=== PATIENT | female | born 1960 | race Caucasian/White ===

== ENCOUNTER 2016-10-24 16:08 | Emergency (ER) | payer OTHER ==
[~2016-10-24] VITALS: Ht 175.3 cm; Wt 76.3 kg
[~2016-10-24 16:08] MED LIST: ABILIFY20 MG PO; ADDERALL20 MG PO; DIAZEPAM5 MG PO; FENOFIBRATE160 M1 PO; GABAPENTIN300 MG PO; OXYCODONE-APAP1 EACH PO; SINGULAIR10 MG PO; SOMA350 MG PO; ZOCOR40 MG PO
[2016-10-24] MEDS ORDERED: INDOCIN25 MG PO (18:19)
[2016-10-24] MEDS ORDERED: NORCO 7.5/321 TABLET PO (18:19)
[2016-10-24 18:33] VITALS: BP 122/68
== END 2016-10-24 18:57 | disposition home or self-care (01) ==
LOC: EME 16:08 → RME 16:08
DX: M75.21 Bicipital tendinitis, right shoulder (principal); S46.811A Strain of other muscles, fascia and tendons at shoulder and upper arm level, right arm, initial encounter; X50.0XXA Overexertion from strenuous movement or load, initial encounter; Y92.63 Factory as the place of occurrence of the external cause; Y99.0 Civilian activity done for income or pay; M32.9 Systemic lupus erythematosus, unspecified; F17.200 Nicotine dependence, unspecified, uncomplicated
CPT/HCPCS: 73030; 99281; 99284

== ENCOUNTER 2017-05-21 10:07 | Emergency (ER) | payer OTHER ==
[~2017-05-21] VITALS: Ht 175.3 cm; Wt 74.3 kg
[~2017-05-21 10:07] MED LIST changes: +INDOCIN25 MG PO; +NORCO 7.5/321 TABLET PO
[2017-05-21] MEDS ORDERED: LEVAQUIN500 MG PO (11:46)
[2017-05-21 12:03] VITALS: BP 123/94
== END 2017-05-21 12:09 | disposition home or self-care (01) ==
LOC: EME 10:07
DX: J18.9 Pneumonia, unspecified organism (principal); M32.9 Systemic lupus erythematosus, unspecified; Z87.891 Personal history of nicotine dependence
CPT/HCPCS: 71020; 99281; 99284

== ENCOUNTER 2017-09-23 12:49 | Emergency (ER) | payer OTHER ==
[~2017-09-23] VITALS: Ht 172.7 cm; Wt 75.1 kg
[~2017-09-23 12:49] MED LIST changes: +LEVAQUIN500 MG PO
[2017-09-23 14:41] LABS: HEMATOCRIT 39.9 % (36.0-46.0); HEMOGLOBIN 13.5 G/DL (11.9-15.5); MCH 32.2 PG (29.0-34.0); MCHC 33.8 G/DL (30.0-36.0); MCV 95.2 FL (83-99); PLATELET COUNT 378 K/uL (156-360); RBC DIS.WIDTH-CV 13.1 % (11.8-14.6); RED BLOOD COUNT 4.19 M/uL (3.80-5.20); WHITE BLOOD COUNT 7.4 K/uL (4.1-10.2)
[2017-09-23 14:53] LABS: CHLORIDE 105 mEq/L (99-109); POTASSIUM 4.2 mEq/L (3.7-5.4); SODIUM 140 mEq/L (136-147)
[2017-09-23 14:55] LABS: GLUCOSE 94 mg/dL (70-99)
[2017-09-23 14:59] LABS: CREATININE 0.7 mg/dL (0.6-1.3); GFR ESTIMATE (CALCULATED) > 59 mL/min/
[2017-09-23 15:00] VITALS: BP 156/107
[2017-09-23 15:00] LABS: UREA NITROGEN (BUN) 9 mg/dL (9-23)
== END 2017-09-23 16:24 | disposition left against medical advice (07) ==
LOC: EME 12:49
DX: R06.9 Unspecified abnormalities of breathing (principal); R10.9 Unspecified abdominal pain; Z53.21 Procedure and treatment not carried out due to patient leaving prior to being seen by health care provider
CPT/HCPCS: 71020; 80048; 85027

== ENCOUNTER 2018-04-12 00:21 | Emergency (ER) | payer OTHER ==
[~2018-04-12] VITALS: Ht 175.3 cm; Wt 71.0 kg
[2018-04-12 01:19] LABS: BASOPHIL (%) 0.6 % (0-1); BASOPHIL COUNT 0.1 K/uL (0-0.1); EOSINOPHIL (%) 1.8 % (0-5); EOSINOPHIL COUNT 0.2 K/uL (0-0.3); HEMATOCRIT 38.5 % (36.0-46.0); IMMATURE GRANULOCYTE (%) 0.2 % (0.0-0.7); LYMPHOCYTE (%) 39.6 % (15-42); LYMPHOCYTE COUNT 3.7 K/uL (1.0-2.8); MCH 31.9 PG (29.0-34.0); MCHC 33.8 G/DL (30.0-36.0); MCV 94.4 FL (83-99); MONOCYTE (%) 7.7 % (3-12); MONOCYTE COUNT 0.7 K/uL (0-0.8); NEUTROPHIL (%) 50.1 % (45-76); NEUTROPHIL COUNT 4.6 K/uL (1.8-6.4); PLATELET COUNT 336 K/uL (156-360); RBC DIS.WIDTH-CV 12.6 % (11.8-14.6); RBC DIS.WIDTH-SD 43.5 % (39-53); RED BLOOD COUNT 4.08 M/uL (3.80-5.20); WHITE BLOOD COUNT 9.2 K/uL (4.1-10.2)
[2018-04-12 01:35] LABS: CHLORIDE 103 mEq/L (99-109); POTASSIUM 4.5 mEq/L (3.7-5.4); SODIUM 142 mEq/L (136-147)
[2018-04-12 01:37] LABS: GLUCOSE 85 mg/dL (70-99)
[2018-04-12 01:41] LABS: CREATININE 0.8 mg/dL (0.6-1.3); GFR ESTIMATE (CALCULATED) > 59 mL/min/; UREA NITROGEN (BUN) 13 mg/dL (9-23)
[2018-04-12 05:05] VITALS: BP 136/92
== END 2018-04-12 05:07 | disposition home or self-care (01) ==
LOC: EME 00:21
PROVIDERS: Emergency Medicine
DX: S30.0XXA Contusion of lower back and pelvis, initial encounter (principal); W10.9XXA Fall (on) (from) unspecified stairs and steps, initial encounter; R91.8 Other nonspecific abnormal finding of lung field; G89.29 Other chronic pain; E78.5 Hyperlipidemia, unspecified; I10 Essential (primary) hypertension; M32.9 Systemic lupus erythematosus, unspecified; F17.200 Nicotine dependence, unspecified, uncomplicated
CPT/HCPCS: 71260; 72132; 74177; 80048; 85025; 99281; 99285; J2270; J7040